=== PATIENT | female | born 1970 | race Caucasian/White ===

== ENCOUNTER → 2016-08-26 | Outpatient (CLI) | payer OTHER ==
[~2016-08-26] MED LIST: AMOX875T PO; AMT50 PO; ATV/1 PO; BUPR-79 PO; CLON1TAB3 PO; CONJ.6255 PO; FLX10 PO; HYDR-3419 PO; METH10TA PO; MULT-506 PO; PRED10TA PO; SENNTAB23 PO; VNTHFA/IN INH
--- NOTE | 2016-08-27 06:43 | PAP/PSG TECHNICIAN REPORT ---
[facility] Cigarette And Filter Chief Inspector Polysomnogram Report Study name: None Report date: 08/27/2016 Study date: 08/26/2016 Referring Physician: Gloria Dong M.D. Name: SAMMY CARR Interpreting Physician: Cale Dong M.D. Date of : 1970 Cigarette And Filter Chief Inspector: VALERY Moulton. Sex: Female Age: 45 StudyType: PSG Weight: 123 lbs Height: 45 years, Height 5' 8" Neck Circum: 13inches BMI: 18.7 Medications: Ativan 1mg, Methadone 10mg, Klonopin 1mg, ProAir HFA 108mcg/act, Elavil 25mg, Bentyl 20mg, Flexeril 10mg, Prempro 0.625-2.5mg, Flonase 50mcg/act, Miralax, Eye drops/cream Patient History Study started on room air with ETCO2 monitoring in room #5. 45 yr old female here tonight for a diagnostic psg. She snores, has chronic pain and insomnia. She has a history of mild BERT. Her ESS=10/24. Neck circ=13inches. Parameters Monitored NPSG: E1-M2, E2-M1, Fp1-M2, Fp2-M1, F3-M2, F4-M2, F4-M1, C3-M2, C4-M2, C4-M1, O1-M2, O2-M2, O2-M1, T3-M2, T4-M1, P3-M2, P4-M1, CHIN1, CHIN2, HR, EKG, Legs, PFLOW, SNOR, FLOW, CFLOW, Tidal Volume, THOR, ABDO, SpO2, PLTH, CPRESS, ETCO2 Wave, ETCO2, pH Sleep Architecture Sleep Stages Time at Lights Off 9:59:31 PM STAGES Time (min.) TST (%) Time at Lights On 5:27:01 AM Wake 116.0 -- Total Recording Time (TRT) 447.50 min. N1 10.5 3 Total Sleep Period (TSP) 379.5 min. N2 221.5 67 Total Sleep Time (TST) 331.5min. N3 86.5 26 Awake Time 116.0 min. REM 13.0 4 Wake after Sleep Onset 56.5 min. Sleep Efficiency (SE) 74 % Sleep Onset Latency (MARI) 59.5 min. Number of Stage 1 Shifts None Awakenings 16 Stage Changes 58 Number of REM periods 3 REM 13.0 4 REM Latency 115.0 min. NREM 318.5 96 Body Position Analysis Supine Right Left Side Prone Vertical Total Sleep Time (min.) 387.0 35.5 0.0 35.50 0.0 0.0 Total Sleep Time (%) 89% 11% 0% 11 0% N/A% Total Sleep Time REM (min.) 13.0 0.0 0.0 None 0.0 0.0 Total Sleep Time NREM (min.) 283.0 35.5 0.0 None 0.0 0.0 Intermittent Wake (min.) 91.0 25.0 0.0 None 0.0 0.0 Total Sleep Period (%) 86% None None None None None Arousals Myoclonus (PLM) * Events Count Index Events Count Index Spontaneous 25 5 Events Awake (PLMW) 17 8.8 Respiratory 1 0.4 Events Asleep w/ Arousal (PLMA) 1 0.2 PLM 1 0 Events Asleep w/o Arousal (PLMS) 32 5.8 Snoring 2 0 Total Asleep 33 6.0 Total 29 5 Total 50 7 Respiratory Analysis * CA OA MA CH H RERA Total Count 1 1 0 0 3 0 5 Index 0.2 0.2 0.0 0 0.5 0 0.9 Mean Duration 12.9 14.5 0.0 0.00 18.1 0.0 16.3 Longest Duration 12.9 14.5 0.0 0.00 0.0 0.0 26.1 Respiratory Event Summary Total Supine ~Supine Right Left Prone REM NREM Apneas Count 2 2 0 0 N/A N/A 1 1 Index 0.4 0 0 0.0 N/A N/A 5 0 Hypopneas (4% Desat) Count 3 3 0 0 N/A N/A 1 2 Index 0.5 0.6 0 0.0 N/A N/A 4.6 0.4 Apneas & All Hypopneas Count 5 5 0 0 N/A N/A 2 3 Index 0.9 1 0 0 N/A N/A 9.2 0.6 Respiratory Events (Director Of Cardiac Cath Lab+All Hyp+RERA) Count 5 5 0 0 N/A N/A 2 3 Index 0.9 1 0 0.0 N/A N/A 9.2 0.6 Respiratory Related Arousal Count 1 5 0 0 N/A N/A 1 1 Index 0.4 0 0 0 N/A N/A 5 0 Snoring Analysis Supine Right Left Prone REM NREM Total Snore duration 1.4 min Snores count 46 15 N/A N/A 3 58 61 Snore mean duration 1.4 Sec Snores index 9 25 N/A N/A 13.8 10.9 11.0 TST with snoring (%) 0.4% SpO2 Analysis Total REM NREM Awake <50% 0.0 min. 0.0 min. 0.0 min. 0.0 min. 51 - 60% 0.0 min. 0.0 min. 0.0 min. 0.0 min. 61 - 70% 0.0 min. 0.0 min. 0.0 min. 0.0 min. 71 - 80% 0.1 min. 0.0 min. 0.0 min. 0.1 min. 81 - 90% 234.6 min. 8.3 min. 189.7 min. 36.5 min. 91 - 100% 210.2 min. 4.7 min. 128.4 min. 77.1 min. Average 90 89 90 92 Minimum SpO2 80 85 84 80 Desaturation Event Index 0.9 4.6 0.6 1.6 # Desat. Events below 89% 4 1 3 N/A Time(%) with Saturation below 89% 29.5 1.2 27.2 1.0 Time(min.) with Saturation below 89% 131.2 5.5 121.0 4.7 Heart Rate Analysis End Tidal CO2 Analysis Min (bpm) Max (bpm) Average (bpm) TSP (mins) % of TSP Awake 65 85 73 Above 55 mmHg 0.0 0.0 NREM 63 127 69 50-55 mmHg 18.2 5.5 REM 70 85 76 45-50 mmHg 170.2 51.4 Overall 63 127 69 40-45 mmHg 71.6 21.6 35-40 mmHg 27.7 8.4 30-35 mmHg 40.8 12.3 Average ETCO2 0.1 Supplemental O2 Values Minimum O2 level: None Value Start Time End Time Cigarette And Filter Chief Inspector Comments Mrs. Carr slept in the right and supine position with the head of her bed slightly elevated. No cardiac arrhythmia or PLM's noted. No bruxism noted. Snoring was noted and scored as a 0.5 on a scale of 1 through 5. (0=no snoring, 5=snoring loud enough to be heard through a closed door or down the munoz way) She did not use the restroom during the night. She stated that she slept better than usual. At 4:20am her AHI was 1.0 and her oxygen saturations were under 89% for 120.9minutes therefore 1 lpm of oxygen was added. The ETCO2 cannula had to be removed for the remaining part of the study so that the oxygen cannula would fit in her nose. The final report will be interpreted and signed by a sleep physician. The completed physician report will then be placed in the patient medical record. Therapy (cm H2O) 0 TIB (min.) 447.5 TST (min.) 331.5 Sleep Onset (min.) 59.5 REM Onset From Sleep (min.) 115.0 Sleep Efficiency % 74 Wakefulness (%) 26 Wakefulness (min.) 116.0 NREM 1 (%) 3 NREM 1 (min.) 10.5 NREM 2 (%) 67 NREM 2 (min.) 221.5 NREM 3 (%) 26 NREM 3 (min.) 86.5 REM (%) 4 REM (min.) 13.0 # Arousals 29 Arousal Index 5 # Snore 61 Snore Index 11.0 AHI 0.9 AHI Supine 1 AHI Non-Supine 0 NREM AHI 0.6 REM AHI 9.2 RDI 0.9 # Obstructive Apnea 1 # Central Apnea 1 # Mixed Apnea 0 # Hypopneas 3 RERAs 0 Total Respiratory Events 5 Time Below SpO2 89% (min.) 126.5 Mean NREM SpO2 (%) 90 Mean REM SpO2 (%) 89 Mean Sleep SpO2 (%) 90 Min NREM SpO2 (%) 84 Min REM SpO2 (%) 85 Position Supine (min.) 387.0 Position Non-supine (min.) 35.5 LM Index Sleep 6.0 LM Index NREM 4.9 LM Index REM 32.3 Mean Heart Rate (bpm) 69 Min Heart Rate (bpm) 63
--- NOTE | 2016-09-07 18:46 | POLYSOMNOGRAPH REPORT ---
REFERRING PERSON: Dr. Kaylen Dong. STRAP SETTER: Debbie Apodaca. Ms. Carr is a 45-year-old female sent for baseline sleep study. She has a history of snoring, chronic pain, and insomnia. She has been previously diagnosed with mild sleep apnea that is currently untreated. Her [place] sleepiness scale score on the evening of this study is 10. BMI is 18.7. Following the technical and digital specifications of the [employer] (AASM) a standard diagnostic polysomnogram was performed monitoring EEG, EOG, EMG (chin and leg deviations), oxygen saturation, body position, digital video, respiratory effort and airflow.? The sleep Stage and event scoring was based on the AASM Manual for the Scoring of Sleep and Associated Events 2007 edition.? Apneas are defined as a drop in the peak thermal sensor excursion by >90% of baseline for at least 10 seconds.? Hypopneas were scored using the 4% oxygen desaturation rule (4A-Medic[employer]) and a decrease in the nasal pressure excursions by >30% of baseline for at least 10 seconds.? Respiratory effort-related arousal (RERA's) is defined as a sequence of breaths lasting at least 10 seconds characterized by increasing respiratory effort or flattening of the nasal pressure waveform leading to an arousal from sleep when the sequence of breaths does not meet criteria for an apnea or hypopnea.? Apnea Hypopnea index (AHI) is defined as the number of apneas and hypopneas occurring in an hour of sleep.? Respiratory disturbance index (RDI) is defined as the number of apneas, hypopneas, and RERA's occurring in an hour of sleep. Ms. Carr's total sleep period time was 379.5 minutes. Total sleep time was 331.5 minutes. Sleep efficiency was 74%. Latency to sleep onset was 59.5 minutes. Wake after sleep onset was 56.5 minutes. Total non-REM sleep time was 318.5 minutes. She spent 3% of that time in N1 sleep, 67% in N2 sleep and 26% in N3 sleep. REM latency was 115 minutes. Total REM sleep time was 13 minutes or 4% of total sleep time. There were 29 cortical arousals from sleep. Twenty-five of these arousals were spontaneous, 1 was due to respiratory event, 1 due to periodic limb movements of sleep and 2 were due to snoring. There were 33 periodic limb movements noted on this test. Limb movement index was 6. Limb movement with arousal index was 0.2. There was 1 central, 1 obstructive and no mixed apneas on this test. There were 3 hypopnea and no RERA. Apnea-hypopnea index was 0.9. This is normal. REM AHI was 9.2, non-REM AHI was 0.6. There were 61 snoring events recorded. Total sleep time with snoring was 0.4%. Mean saturation was borderline low at 90% with desaturations to 80% on this study. Saturations were less than 89% for 131.2 minutes of recorded time. This is significant nocturnal hypoxemia. There was no cardiac ectopy noted on this study. Heart rates ranged from a low of 63 to 127 beats per minute during sleep. End-tidal CO2 was recorded on this test. End tidal CO2 were between 50 and 55 mmHg or 5.5% of total sleep period time, between 45 and 50 mmHg for 51.4%, between 40 and 45 mmHg for 21.6%, between 35 and 40 mmHg for 8.4% and between 30 and 35 mmHg for 12.6% of total sleep period time. At 04:20 a.m., this patient's AHI was less than 1, but her oxygen saturations had been under 89% for 120.9 minutes of recording time. Therefore, 1 liter of oxygen was started at that time on this study. IMPRESSION AND PLAN: A 45-year-old female without evidence of sleep disordered breathing, parasomnia, bruxism or clinically significant periodic limb movements of sleep. However, she does have nocturnal hypoxemia. Clinical correlation is needed. This patient may in fact benefit from oxygen therapy or need pulmonary function test and/or pulmonary consultation should the cause of her hypoxemia be unknown.
== END | disposition home or self-care (01) ==
LOC: C.NEUR 21:00
PROVIDERS: ATTEND Family Medicine
DX: G47.31 Primary central sleep apnea (principal); F51.11 Primary hypersomnia; F51.04 Psychophysiologic insomnia; R06.83 Snoring; G47.33 Obstructive sleep apnea (adult) (pediatric); G47.34 Idiopathic sleep related nonobstructive alveolar hypoventilation; G47.61 Periodic limb movement disorder; G47.63 Sleep related bruxism; F41.8 Other specified anxiety disorders; J44.9 Chronic obstructive pulmonary disease, unspecified

== ENCOUNTER → 2016-10-06 | Outpatient (CLI) | payer OTHER ==
--- NOTE | 2016-10-06 10:01 | DIAGNOSTIC IMAGING REPORT ---
PET/CT CLINICAL HISTORY: Pulmonary nodule. COMPARISON STUDY: Chest CT dated 09/16/2016 and 05/07/2016. TECHNIQUE: One hour following the IV administration of 13.61 mCi of F-18 FDG, PET/CT examination was performed from the orbital meatal line through the bony pelvis. Noncontrast CT is performed for the purposes of anatomic correlation and attenuation correction. Note that this does not reflect a diagnostic CT examination. Images were reviewed on a separate [employer] independent workstation. Fused images were obtained. Standard uptake values reported are maximum values within the region of interest expressed in gm/mL. FINDINGS: PET FINDINGS: Head and neck: There is expected physiologic activity within the visualized brain parenchyma at the skull base and the salivary glands. Thorax: Evaluation of the thorax demonstrates expected physiologic myocardial activity. Again seen is a 9 mm irregular right lower lobe pulmonary nodule on axial image #104. This was not demonstrably FDG avid but is too small for definitive PET characterization. A 6 mm left lower lobe nodule is seen on image #121, a 3 mm pleural-based nodule is seen in the right lower lobe on image #94, a 4 mm left apical nodule image #70, and a 3 mm right apical nodule seen on image #67. Additional smaller nodules are identified. These were also too small for PET characterization end are unchanged from the 09/16/[address] Abdomen and pelvis: There is expected activity within the liver, spleen, kidneys, renal collecting system, and bladder. Low-level bowel activity is likely within physical limits. Unenhanced CT images: Visualized brain parenchyma at the skull base is normal in appearance. The bony orbits are intact and the orbital contents are normal as visualized. The visualized paranasal sinuses are clear. A right mastoid effusion is noted. The left mastoid air cells are clear. The salivary and thyroid glands are normal in appearance. There is no cervical lymphadenopathy. There is mild atherosclerotic calcification of the thoracic aorta which is normal in caliber. The heart is normal in size and without pericardial effusion. Emphysema is observed. There is no airspace consolidation typical for pneumonia or pleural effusion. A calcified granuloma is noted in the left lower lobe. See above under PET findings for discussion of pulmonary nodules. There is no mediastinal, hilar, or axillary lymphadenopathy. The unenhanced liver is normal in appearance noting fatty infiltration adjacent to the falciform ligament. The gallbladder surgically absent. Intrahepatic biliary ductal dilatation is likely on a postoperative basis. The unenhanced spleen, adrenal glands, kidneys, and pancreas are grossly normal. The abdominal aorta is normal in caliber noting mild atherosclerotic calcification. There is no bowel obstruction. No intraperitoneal free air or abdominal ascites is seen. There is no abdominal, mesenteric, retroperitoneal, pelvic, or inguinal lymphadenopathy. The bladder is decompressed and not evaluated. The uterus is surgically absent. No adnexal lesion is seen. The skeletal structures are osteopenic. No lytic or blastic bony lesions are identified. There are postoperative changes from lumbar spinal fusion surgery. IMPRESSION: 1. There is a 9 mm irregular pulmonary nodule in the right lower lobe. This was not demonstrably FDG avid but is too small for definitive PET characterization. When correlated with the 09/16/[address] this remains morphologically concerning and neoplasm is not excluded. 2. Numerous additional smaller pulmonary nodules are also unchanged from 09/16/2016 and are too small for PET characterization. 3. There is no FDG avid mediastinal or hilar lymphadenopathy. 4. There is no evidence of metastatic disease. 5. Emphysema. Electronically signed by: London Asencio M.D. 10/06/2016 10:00 AM Dictated Date/Time: 10/06/2016 9:47 AM
== END | disposition home or self-care (01) ==
LOC: C.PET 06:58
PROVIDERS: ATTEND Surgery
DX: R91.1 Solitary pulmonary nodule (principal)

== ENCOUNTER → 2016-10-16 | Outpatient (CLI) | payer OTHER | END | disposition home or self-care (01) | LOC: C.LAB 12:56 | PROVIDERS: ATTEND Surgery | DX: C34.90 Malignant neoplasm of unspecified part of unspecified bronchus or lung (principal) ==

== ENCOUNTER 2016-10-21 05:59 | Inpatient (IN) | payer OTHER ==
[2016-10-17 10:12] VITALS: Ht 175.3 cm; Wt 54.5 kg
[~2016-10-21] VITALS: Ht 175.3 cm; Wt 54.5 kg
[2016-10-21] VITALS (7 sets, daily range): BP systolic 108–132; BP diastolic 63–83; PULSE 80–93; TEMP 36.3–36.7; O2SAT 96–100
[~2016-10-21 05:59] MED LIST changes: -AMOX875T PO; -CLON1TAB3 PO; -PRED10TA PO; -SENNTAB23 PO
[2016-10-21] MEDS ORDERED: LACTATED RINGER'S 1000ML 1,000 ML IV SCH (06:00)
[2016-10-21] MEDS ORDERED: ROCURONIUM BROMIDE 10 MG/ML 5 ML VIAL ONE ×2 (06:27→09:17)
[2016-10-21] MEDS ORDERED: FENTANYL CITRATE INJ 50 MCG/1 ML 2 ML VIAL ONE ×3 (06:27→09:06)
[2016-10-21] MEDS ORDERED: MIDAZOLAM HCL 1 MG/ML 2ML VIAL ONE (06:27)
[2016-10-21] MEDS ORDERED: ONDANSETRON INJ 2 MG/ML 2 ML VIAL ONE (06:27)
[2016-10-21] MEDS ORDERED: PROPOFOL IV EMULSION 10 MG/ML 20 ML VIAL IV ONE (06:27)
[2016-10-21] MEDS ORDERED: NEOSTIGMINE METHYLSULFATE 5 MG/5 ML SYR ONE (06:28)
[2016-10-21] MEDS ORDERED: GLYCOPYRROLATE INJ 0.2 MG/ML VIAL ONE ×2 (06:28→10:18)
--- NOTE | 2016-10-21 06:56 | History & Physical Bridge Note ---
H&P Re-Evaluation Bridge Note: I have examined the patient, reviewed the History & Physical and in the interval since the performance of the History & Physical I have noted the following changes of clinical significance: No changes noted
[2016-10-21] MEDS ORDERED: BUPIVACAINE LIPOSOME 1/3% 266 MG/20 ML VIAL INFIL ONE (07:19)
[2016-10-21] MEDS ORDERED: SODIUM CHLORIDE 0.9% PF 50 ML VIAL ONE (07:19)
[2016-10-21] MEDS ORDERED: CLINDAMYCIN PHOS 150 MG/ML 2 ML VIAL ONE (09:09)
[2016-10-21] MEDS ORDERED: PHENYLEPHRINE 100MCG/ML 5ML SYR IV PRN (09:45)
[2016-10-21] MEDS ORDERED: HYDROmorphone INJ 2 MG/ML SYR/VIAL IV PRN (09:45)
[2016-10-21] MEDS ORDERED: EpHEDrine SULFATE INJ 50 MG/ML AMP IV PRN (09:45)
[2016-10-21] MEDS ORDERED: ATROPINE SULFATE 0.1 MG/ML 5ML SYR IV PRN (09:45)
[2016-10-21] MEDS ORDERED: ONDANSETRON INJ 2 MG/ML 2 ML VIAL IV PRN ×2 (09:45→10:45)
--- NOTE | 2016-10-21 10:19 | DIAGNOSTIC IMAGING REPORT ---
FLUOROSCOPIC images of the chest CLINICAL HISTORY: NAVIGATIONAL BRONCH WITH FIDUCIAL MAKERS IN OR COMPARISON STUDY: PET/CT October 06, 2016. Fluoroscopy time: 1 minute and 26 seconds. FINDINGS: 2 fluoroscopic images from bronchoscopy with fiducial marker placement were obtained. IMPRESSION: Fluoroscopic images during bronchoscopy. Electronically signed by: Gianni Holley M.D. 10/21/2016 10:17 AM Dictated Date/Time: 10/21/2016 10:16 AM
[2016-10-21] MEDS ORDERED: OXYCODONE HCL IR 5 MG TAB (IMMEDIATE RELEASE) PO PRN (10:45)
[2016-10-21] MEDS ORDERED: LORAZEPAM 1 MG TAB PO PRN (10:45)
[2016-10-21] MEDS ORDERED: ALBUTEROL HFA 8 GM INHALER INH PRN (10:45)
[2016-10-21] MEDS ORDERED: CYCLOBENZAPRINE HCL 10 MG TAB PO PRN (10:45)
--- NOTE | 2016-10-21 11:14 | DIAGNOSTIC IMAGING REPORT ---
CHEST ONE VIEW PORTABLE CLINICAL HISTORY: RLL Wedge COMPARISON STUDY: PET/CT October 06, 2016. FINDINGS: A right chest tube is directed toward the apex. There is a trace right pneumothorax. Right infrahilar opacity is present. There is no evidence of pulmonary edema. Cardiac size is normal. IMPRESSION: Interval postoperative findings within the right hemithorax with right chest tube in place. Trace right pneumothorax and right infrahilar opacity which is likely postsurgical. Electronically signed by: Gianni Holley M.D. 10/21/2016 11:13 AM Dictated Date/Time: 10/21/2016 11:12 AM
--- NOTE | 2016-10-21 11:32 | OPERATIVE REPORT ---
DATE OF OPERATION: 10/21/2016 PREOPERATIVE DIAGNOSIS: Mass right lower lobe. POSTOPERATIVE DIAGNOSIS: Apparent intrapulmonary lymph node right lower lobe. PROCEDURES: 1. Navigational bronchoscopy with marking using a fiducial marker and a methylene blue dye. 2. Right thoracoscopy with wedge resection. 3. Lymph node biopsy. SURGEON: Dr. Mccullough. ASSISTANT HEALTH EDUCATOR: William Swan PA-C. ANESTHESIA: General anesthesia endotracheal intubation with double lumen tube. SPECIFICS OF PROCEDURE: This is a very nice 46-year-old smoker who was found to have a mass that I was suspicious of in the right lower lobe. She got some 2-3 mm small masses throughout her lungs, but this mass in her right lower lobe was concerning. It was really not an area where it could be needles and was not suitable for needle biopsy and I did not think a navigational bronchoscopy would provide a very good yield. I felt that marking this with a navigational bronchoscopy and fiducial marker and then wedging it out would be the best option. I did leave open the option of simply observing it and repeating a CT scan in 3 months; however, the patient and her were agreeable to a more aggressive approach. On 10/21/2016 I took the patient to the operating room and performed navigational bronchoscopy without difficulty. The mass was small and peripheral and I did get in the area and put a fiducial marker and did callie towards the pleural surface with methylene blue dye. She tolerated it well and then we put a double lumen tube and turned her. Upon entering her chest, we see there were no adhesions. I did not really see the methylene blue but we brought in fluoroscopy and I could see the fiducial marker. In picking this up I then did a generous wedge. I could see from my first staple line that the fissure marker had been included in it so I included this first staple line with another more generous bite. I opened this and did not really see much on the first biopsy specimen, the second there was a darkened area. I sent this off for frozen. While waiting for frozen I freed up the inferior pulmonary ligament, biopsied level 8 and 9 nodes and then frozen section came back as intrapulmonary lymph node. It was the appropriate size. Given this, I elected to proceed with closing the patient. We did an Exparel block. She tolerated it well. OPERATION AND FINDINGS: PROCEDURE: The patient brought to the operating room and laid supine position. General anesthesia induced and endotracheal intubation was performed with an 8.5 tube. She had been mapped previously on the [employer] system. The bronchoscope was then placed, there were no endobronchial lesions, bleeding or mucus. We then registered her airways and then placed the navigational probe down into the right lower lobe bronchus and we were able to come out close to the mass. It did not actually get into it. I did not see it on the radial ultrasound which did not surprise me. I placed a fiducial marker as we were within 1.5 cm. I then used methylene blue and 0.5 mL of air injected under fluoroscopic guidance and then removed the bronchoscope. The patient then was reintubated with a double lumen tube and placed in the left lateral decubitus position, her right chest prepped, draped in usual sterile fashion. After appropriate timeout had been called and antibiotics had been given, an incision was made still a bit anterior to the tip of the scapula. Upon entering this with a 5 mm scope and insufflating CO2, we could see that there were really no adhesions. The fissures were fairly well developed. I did not see methylene blue where we injected; however, under fluoroscopy, I did see the fiducial marker. I grasped this area, pulled it upward and did a wedge resection of the superior lateral aspect of the lobe. This went well; however, I could see the fiducial marker and our staple line. For this reason, I grasped the staple line and put another staple line underneath this and sent off both of these. Dr. Vazquez Johnson called back and said they had found an 8 mm intrapulmonary lymph node. We did not have an air leak at the conclusion. While waiting for the frozen section, I freed up the inferior pulmonary ligament and biopsied the level 8 and 9 nodes. When it came back as intrapulmonary lymph node, I had a decision to make about whether this was indeed our mass. As I saw nothing else in the area I felt that we were probably dealing with the mass that was concerning to us. I elected to close. 266 mg of Exparel was 60 mL of normal saline were injected from the 2nd to the 11th rib. We then placed a 24 Armenian chest tube in the anterior thoracostomy port directed towards the apex and held in place with heavy silk suture. All the muscle layers of the 3 ports were closed with a 0 Vicryl. It should be noted we had a 4th interspace, 3 cm incision and a 7th interspace anterior 1.5 cm incision for our instruments. She tolerated it quite well with no air leak and really no blood loss. She was transported to the postanesthesia care unit in stable condition after being extubated. I attest to the content of the Intraoperative Record and any orders documented therein. Any exception s are noted below.
[2016-10-21] MEDS: MoRPHine SULFATE 2 MG/ML CARP IV PRN ×3 (12:34→20:27)
[2016-10-21] MEDS ORDERED: D5W AND 1/2NSS 1,000 ML IV SCH (13:30)
--- NOTE | 2016-10-21 13:57 | Anesthesiology Progress Note ---
Anesthesia Post Op Note Date & Time Oct 21, 2016 at 13:57 Vital Signs Pain Intensity: 8.0 Vital Signs Past 12 Hours Date Time Temp Pulse Resp B/P (MAP) Pulse Ox O2 Delivery O2 Flow Rate FiO2 10/21/16 13:13 36.3 81 19 128/82 (97) 99 Nasal Cannula 2.0 10/21/16 12:15 100 Nasal Cannula 2.0 10/21/16 11:55 83 19 129/76 98 Nasal Cannula 2 10/21/16 11:45 36.1 74 18 140/66 99 Nasal Cannula 2 10/21/16 11:35 81 14 128/68 99 Nasal Cannula 2 10/21/16 11:25 75 18 104/67 100 Mask 10 10/21/16 11:15 75 29 120/64 100 Mask 10 10/21/16 11:05 75 20 136/75 100 Mask 10 10/21/16 10:57 35.8 78 21 111/69 100 Mask 10 10/21/16 06:42 36.7 80 18 114/63 97 Room Air Notes Mental Status: alert / awake / arousable, participated in evaluation Pt Amnestic to Procedure: Yes Nausea / Vomiting: adequately controlled Pain: adequately controlled Airway Patency, RR, SpO2: stable & adequate BP & HR: stable & adequate Hydration State: stable & adequate Anesthetic Complications: no major complications apparent
[2016-10-21] MEDS: METOCLOPRAMIDE HCL INJ 5 MG/ML 2 ML VIAL IV. SCH ×2 (14:23→21:39)
[2016-10-21] MEDS: KETOROLAC TROMETHAMINE 30 MG/ML VIAL IV. SCH ×2 (14:23→21:39)
[2016-10-21] MEDS: ACETAMINOPHEN IV 1,000 MG in EMPTY BAG 0 ML IV SCH ×2 (14:25→21:13)
[2016-10-21] MEDS: CLINDAMYCIN IV 900 MG in DEXTROSE 5% ADD-VANTAGE 100ML 100 ML IV SCH ×2 (15:57→21:39)
[2016-10-21] MEDS ORDERED: NURSING VERBAL MED ORDER ONE (18:00)
[2016-10-21] MEDS: DOCUSATE SODIUM 100 MG CAP PO SCH (20:26)
[2016-10-21] MEDS: BuPROPion SR 150 MG TABCR PO SCH (20:26)
[2016-10-21] MEDS ORDERED: AMITRIPTYLINE HCL 50 MG TAB PO SCH (21:00)
[2016-10-22] MEDS: MoRPHine SULFATE 2 MG/ML CARP IV PRN (02:56)
[2016-10-22 03:42] VITALS: BP 107/67; PULSE 87; TEMP 36.8; O2SAT 95
[2016-10-22] MEDS: ACETAMINOPHEN IV 1,000 MG in EMPTY BAG 0 ML IV SCH ×2 (05:35→13:41)
[2016-10-22] MEDS: KETOROLAC TROMETHAMINE 30 MG/ML VIAL IV. SCH ×2 (05:35→13:41)
[2016-10-22] MEDS: METOCLOPRAMIDE HCL INJ 5 MG/ML 2 ML VIAL IV. SCH (05:35)
--- NOTE | 2016-10-22 07:29 | DIAGNOSTIC IMAGING REPORT ---
CHEST ONE VIEW PORTABLE CLINICAL HISTORY: RLL Wedge postoperative evaluation COMPARISON STUDY: 10/21/2016 FINDINGS: Right-sided chest tube unchanged in position. Trace amount of subcutaneous emphysematous change. No significant pneumothorax. Mild right basilar atelectasis. IMPRESSION: 1. No significant postprocedure pneumothorax. 2. Mild right basilar atelectatic change Electronically signed by: Kenny Cash M.D. 10/22/2016 7:28 AM Dictated Date/Time: 10/22/2016 7:27 AM
[2016-10-22 07:34] VITALS: BP 106/70; PULSE 89; TEMP 36.6; O2SAT 95
[2016-10-22 07:45] VITALS: O2SAT 95
[2016-10-22 08:08] LABS: INR 1.1 (0.9-1.1); PROTHROMBIN TIME (PATIENT) 11.7 SECONDS (9.0-12.0)
--- NOTE | 2016-10-22 08:18 | Discharge Instructions ---
Discharge Instructions Date of Service Oct 22, 2016. Admission Reason for Admission: Lung Nodule Discharge Discharge Diagnosis / Problem: Lung Nodule Discharge Goals Goal(s): Learn about illness Activity Recommendations Activity Limitations: as noted below . Instructions / Follow-Up Instructions / Follow-Up 1. You may remove dressings in 3 days and shower thereafter. No tub baths. 2. Do not fly or SCUBA dive until cleared to do so by Dr. Mccullough. 3. Office appointment with Dr. Mccullough in 1 week. Office will call you with date and time of appointment. Go to hospital 1 hour before appointment to have a chest x-ray taken. Current Hospital Diet Patient's current hospital diet: Regular Diet Discharge Diet Recommended Diet: Regular Diet Procedures Procedures Performed: Navigational Bronchoscopy with Fiducial Markers; Right Video-assisted Thoracoscopy with Right Lower Lobe Wedge Resection Pending Studies Studies pending at discharge: no Medical Emergencies . Who to Call and When: Medical Emergencies: If at any time you feel your situation is an emergency, please call 911 immediately. . Non-Emergent Contact Non-Emergency issues call your: Surgeon Call Non-Emergent contact if: you have a fever, your pain is not controlled, wound has increased drainage . "Provider Documentation" section prepared by William Swan. . VTE Core Measure Inpt VTE Proph given/why not?: Enoxaparin (Lovenox)SQ
[2016-10-22 08:31] LABS: CREATININE 0.8 mg/dl (0.60-1.20)
[2016-10-22] MEDS: BuPROPion SR 150 MG TABCR PO SCH (08:42)
[2016-10-22] MEDS: DOCUSATE SODIUM 100 MG CAP PO SCH (08:42)
--- NOTE | 2016-10-22 08:46 | Anesthesiology Progress Note ---
Anesthesia Post Op Note Date & Time Oct 22, 2016 at 08:46 Vital Signs Vital Signs Past 12 Hours Date Time Temp Pulse Resp B/P (MAP) Pulse Ox O2 Delivery O2 Flow Rate FiO2 10/22/16 07:45 95 Room Air 10/22/16 07:34 36.6 89 11 106/70 (82) 95 Room Air 10/22/16 03:42 36.8 87 18 107/67 (80) 95 Room Air 10/21/16 23:17 36.3 93 16 108/68 (81) 96 Room Air Notes Mental Status: alert / awake / arousable, participated in evaluation Pt Amnestic to Procedure: Yes Nausea / Vomiting: adequately controlled Pain: adequately controlled Airway Patency, RR, SpO2: stable & adequate BP & HR: stable & adequate Hydration State: stable & adequate Anesthetic Complications: no major complications apparent
[2016-10-22] MEDS ORDERED: HYDR-3419 PO (08:59)
[2016-10-22] MEDS ORDERED: MULTIVITAMIN TAB PO SCH (09:00)
--- NOTE | 2016-10-22 09:05 | DISCHARGE SUMMARY ---
Ms. Carr is 1 day status post thoracoscopic wedge resection of a mass in her right lower lobe which was localized with a fiducial marker via an electromagnetic navigational bronchoscopy. She has done well overnight. There are some pain issues but she has really done well. She is on room air with 95% sats. Her x-ray looks good. She has drained very little from her chest tube. She has no air leak. All in all, she looks quite good. I am going to remove her chest tube and discharge her today. We will see her back in 1 week. We will give her pain medications. I have been very happy with her hospital course. She is to call me should any problems arise.
[2016-10-22 09:11] LABS: MEAN CELL VOLUME 89.3 fL (80-100); MEAN CORPUSCULAR HEMOGLOBIN 29.1 pg (25-34); MEAN CORPUSCULAR HGB CONC 32.6 g/dl (32-36); MEAN PLATELET VOLUME 9.8 fL (7.4-10.4); PLATELET COUNT 178 K/uL (130-400); RED BLOOD COUNT 3.47 M/uL (4.2-5.4); WHITE BLOOD COUNT 7.46 K/uL (4.8-10.8)
--- NOTE | 2016-10-22 09:35 | DIAGNOSTIC IMAGING REPORT ---
SINGLE VIEW CHEST CLINICAL HISTORY: Status post chest tube removal. FINDINGS: An AP, portable, upright chest radiograph is compared to study performed earlier the same day 10/22/2016. Correlation is made with chest CT dated 05/07/2016. The examination is degraded by portable technique and patient rotation. A right-sided chest tube has been removed. The cardiomediastinal silhouette is unremarkable. Airspace opacities are present at the right lung base. There is a trace right pleural effusion. The left lung appears clear. There is only a trace right apical pneumothorax. There is chronic posttraumatic deformity of the left clavicle. Subcutaneous emphysema is seen along the right chest wall. Surgical clips are noted in the right upper quadrant. IMPRESSION: 1. The right-sided chest tube has been removed. Only trace pneumothorax is seen at the right apex. 2. There are airspace opacities at the right lung base with a trace right pleural effusion. Electronically signed by: London Asencio M.D. 10/22/2016 9:33 AM Dictated Date/Time: 10/22/2016 9:30 AM
[2016-10-22] MEDS ORDERED: ENOXAPARIN 40 MG/0.4 ML SYR SQ SCH (10:00)
[2016-10-22 11:08] VITALS: BP 106/70; PULSE 89; TEMP 36.6; O2SAT 95
[2016-10-22 11:56] VITALS: BP 122/72; PULSE 89; TEMP 36.4; O2SAT 95
[2016-12-25] MEDS ORDERED: SENNTAB23 PO (11:32)
== END 2016-10-22 14:40 | disposition home or self-care (01) | DRG 168 ==
LOC: C.ACU 05:59 → C.MSN 07:00 → ENRESERV 11:35
PROVIDERS: ADMIT Surgery; ATTEND Surgery
PROC: 0BBF4ZX Excision of Right Lower Lung Lobe, Percutaneous Endoscopic Approach, Diagnostic (ICD-10-PCS; principal; 2016-10-21 07:45)
PROC: 07B74ZX Excision of Thorax Lymphatic, Percutaneous Endoscopic Approach, Diagnostic (ICD-10-PCS; principal; 2016-10-21 07:45)
PROC: 0BJ08ZZ Inspection of Tracheobronchial Tree, Via Natural or Artificial Opening Endoscopic (ICD-10-PCS; principal; 2016-10-21 07:45)
DX: R91.8 Other nonspecific abnormal finding of lung field (principal); R91.1 Solitary pulmonary nodule; F17.200 Nicotine dependence, unspecified, uncomplicated; Z79.899 Other long term (current) drug therapy; Z85.828 Personal history of other malignant neoplasm of skin; Z83.3 Family history of diabetes mellitus; Z82.49 Family history of ischemic heart disease and other diseases of the circulatory system

== ENCOUNTER → 2016-10-27 | Outpatient (CLI) | payer OTHER ==
[~2016-10-27] MED LIST changes: +SENNTAB23 PO
--- NOTE | 2016-10-27 12:08 | DIAGNOSTIC IMAGING REPORT ---
CHEST 2 VIEWS ROUTINE HISTORY: R91.1 Lung [id number] COMPARISON: Chest 10/22/2016. FINDINGS: The right-sided pneumothorax appears to have resolved in the interval. Trace right chest wall subcutaneous emphysema has improved. Left lung remains clear. The heart is normal in size. Suture material within the right mid to lower lung zone is again noted. Linear densities within the right mid to lower lung zone adjacent to the suture material has improved. This likely represents resolving postoperative change. Cholecystectomy. IMPRESSION: Improvement in the expected postoperative change within the right hemithorax as described above. No definite pneumothorax identified at this time. Electronically signed by: Rodri Munoz M.D. 10/27/2016 12:06 PM Dictated Date/Time: 10/27/2016 12:05 PM
== END | disposition home or self-care (01) ==
LOC: C.RAD 11:23
PROVIDERS: ATTEND Surgery
DX: R91.1 Solitary pulmonary nodule (principal)

== ENCOUNTER → 2017-02-16 | Outpatient (CLI) | payer OTHER ==
--- NOTE | 2017-02-16 18:03 | DIAGNOSTIC IMAGING REPORT ---
CT OF THE CHEST WITHOUT IV CONTRAST CLINICAL HISTORY: Right lung mass. COMPARISON STUDY: Chest CT September 16, 2016 and PET/CT October 06, 2016. CT DOSE: 223.33 mGy.cm TECHNIQUE: Axial images of the chest were obtained without IV contrast. Images were reviewed in the axial, sagittal, and coronal planes. IV contrast was not administered for this examination. A dose lowering technique was utilized adhering to the principles of ALARA. FINDINGS: No enlarged axillary, mediastinal or hilar lymph nodes are present. The size of the heart is normal. There is no pericardial effusion. There are expected postoperative findings consistent with a right lower lobe wedge resection. Linear and nodular opacity within the operative bed is likely postsurgical. The right lower lobe nodule shown on PET/CT of October 06, 2016 is not confidently identified and has likely been resected although could be obscured by postsurgical change. There is no consolidation to suggest pneumonia. Central airways are patent. There are multiple small calcified and noncalcified pulmonary nodules, the largest of which is a 5 mm left lower lobe nodule shown image 243. This is unchanged since exam of May 07, 2016. No suspicious osseous lesions are present. Mild biliary ductal dilatation is unchanged from prior exams and likely related to prior cholecystectomy. There is no pneumothorax or pleural effusion. IMPRESSION: 1. Expected postoperative findings following right lower lobe wedge resection. Slightly nodular opacity within the operative bed likely reflects postsurgical change. Previously described right lower lobe nodule not identified and has likely been resected. 2. No change in several additional small noncalcified pulmonary nodules since CT of May 07, 2016. These are likely benign but a follow-up chest CT in one year could be obtained to ensure stability. 3. No thoracic lymphadenopathy. Electronically signed by: Gianni Holley M.D. 02/16/2017 6:01 PM Dictated Date/Time: 02/16/2017 5:47 PM
== END | disposition home or self-care (01) ==
LOC: C.CTS 16:38
PROVIDERS: ATTEND Surgery
DX: R91.1 Solitary pulmonary nodule (principal)

== ENCOUNTER → 2017-02-25 | Day surgery (SDC) | payer OTHER ==
[2016-12-25 11:33] VITALS: Ht 175.3 cm; Wt 54.5 kg
[~2017-02-25] VITALS: Ht 175.3 cm; Wt 54.5 kg
[~2017-02-25] MED LIST changes: +ATROPINE SULFATE 0.1 MG/ML 5ML SYR IV PRN; +BUPIVACAINE 0.25% 2.5MG/ML PF 10 ML VIAL ONE; +DEXAMETHASONE SOD INJ 4 MG/ML VIAL ONE; +FENTANYL CITRATE INJ 50 MCG/1 ML 2 ML VIAL IV PRN; +FENTANYL CITRATE INJ 50 MCG/1 ML 2 ML VIAL ONE; +LACTATED RINGER'S 1000ML 1,000 ML IV SCH; +LIDOCAINE HCL 1% 20 ML VIAL ONE; +LIDOCAINE HCL 2% 2 ML VIAL (20MG/ML) ONE; +MIDAZOLAM HCL 1 MG/ML 2ML VIAL ONE; +ONDANSETRON INJ 2 MG/ML 2 ML VIAL IV PRN; +ONDANSETRON INJ 2 MG/ML 2 ML VIAL ONE; +PROPOFOL IV EMULSION 10 MG/ML 20 ML VIAL IV ONE
[2017-02-25 08:54] VITALS: TEMP 36.6
--- NOTE | 2017-02-25 08:59 | Discharge Instructions ---
Discharge Instructions Date of Service Feb 25, 2017. Visit Reason for Visit: Sacroiliitis Discharge Discharge Diagnosis / Problem: low back pain Discharge Goals Goal(s): Decrease discomfort, Improve function Activity Recommendations Activity Limitations: resume your previous activity Anesthesia . Post Anesthesia Instructions: If you have had General Anesthesia or IV Sedation: * Do not drive today. * Resume driving when surgeon permits. * Do not make important decisions or sign legal documents today. * Call surgeon for: 1. Temperature elevations greater than 101 degrees F. 2. Uncontrollable pain. 3. Excessive bleeding. 4. Persistent nausea and vomiting. 5. Medication intolerance (nausea, vomiting or rash). * For nausea and vomiting use only clear liquids such as: tea, soda, bouillon until nausea subsides, then gradually increase diet as tolerated. * If you have any concerns or questions, call your surgeon's office. If physician is unavailable and it is an emergency, call 911 or go to the nearest emergency room. . Diet Recommendations Recommended Home Diet: resume previous diet Procedures Procedures Performed: Left Cooled Sacroiliac Radio Frequency Denervation Pending Studies Studies pending at discharge: no Medical Emergencies . Who to Call and When: Medical Emergencies: If at any time you feel your situation is an emergency, please call 911 immediately. . Non-Emergent Contact Non-Emergency issues call your: Specialist . . "Provider Documentation" section prepared by Hu uJng. .
[2017-02-25 09:06] VITALS: BP 111/53; PULSE 73; O2SAT 98
--- NOTE | 2017-02-25 09:09 | Anesthesia Progress Nt - [facility] ---
Anesthesia Post Op Note Date & Time Feb 25, 2017 at 09:08 Vital Signs Vital Signs Past 12 Hours Date Time Temp Pulse Resp B/P (MAP) Pulse Ox O2 Delivery O2 Flow Rate FiO2 02/25/17 08:54 36.6 70 16 104/68 (80) 100 Room Air 02/25/17 07:17 36.6 87 16 93/57 (69) 99 Room Air Notes Mental Status: alert / awake / arousable, participated in evaluation Pt Amnestic to Procedure: Yes Nausea / Vomiting: adequately controlled Pain: adequately controlled Airway Patency, RR, SpO2: stable & adequate BP & HR: stable & adequate Hydration State: stable & adequate Anesthetic Complications: no major complications apparent
--- NOTE | 2017-02-25 11:14 | OPERATIVE REPORT ---
DATE OF OPERATION: 02/25/2017 CHIEF COMPLAINT: Left sacroiliitis, history of an L5-S1 fusion. POSTOPERATIVE DIAGNOSIS: Same. PROCEDURE: Left sacroiliac cooled denervation. INDICATIONS: The patient is a 46-year-old female that had a sacroiliac denervation done on the left side in April, reported that that provided her with significant relief of pain that she has not felt for years; however, recently the effect has worn off and the pain has been increasing. She presents today for cooled denervation to provide her with sustained improvements in pain for left sacroiliitis. PHYSICAL EXAMINATION: GENERAL: Pleasant female, seated comfortably. MUSCULOSKELETAL: Her lumbar paraspinal muscles revealed a well-healed incision. She is point tender to palpation over left SI joint. This is worse with extension. She has no motor or sensory deficits of her lower extremities. CONSENT: Verbal and written consent was obtained from the patient. Risks and benefits were reviewed. Risks include but are not limited to abscess, allergic reaction, denervation. The patient wishes to proceed. PROCEDURE: The patient was taken back into OR-1 of the [facility] where she was maintained in a prone position. Backside was cleansed with Betadine x3 and a dry sterile dressing was applied. Fluoroscope was used to identify left SI joint and the overlying skin lateral and superior to S1 foramen was anesthetized with 5 mL of lidocaine 1% and the overlying skin lateral to S2 foramen was anesthetized with 3 mL of lidocaine 1% with 25-gauge 1.5-inch needle. A denervation needle was then placed targeting a total of 8 separate sites. The first site was the left sacral ala, the second site was lateral superior S1 foramen, the third site lateral S1 foramen, the next site was inferior lateral S1 foramen, next site superior lateral S2 foramen, next site lateral S2 foramen, then the next site was the inferior S2 foramen and last site was the superior S3 foramen. Underwent cooling of 2 minutes and 30 seconds at each site. The procedure was well tolerated. She had conscious sedation throughout but was able to speak clearly. DISPOSITION: The patient is taken out into the discharge recovery area where she will be discharged home once discharge criteria have been met and she will follow up in the [facility] office in 2-4 weeks. I attest to the content of the Intraoperative Record and any orders documented therein. Any exception s are noted below.
== END | disposition home or self-care (01) ==
LOC: X.SURG 06:56
PROVIDERS: ATTEND Physical Medicine & Rehabilitation
DX: M46.1 Sacroiliitis, not elsewhere classified (principal); E66.9 Obesity, unspecified; F17.200 Nicotine dependence, unspecified, uncomplicated; Z98.890 Other specified postprocedural states; Z88.2 Allergy status to sulfonamides; Z91.040 Latex allergy status; Z90.89 Acquired absence of other organs; Z68.1 Body mass index [BMI] 19.9 or less, adult

== ENCOUNTER → 2017-09-21 | Outpatient (CLI) | payer OTHER ==
[~2017-09-21] MED LIST changes: -ATROPINE SULFATE 0.1 MG/ML 5ML SYR IV PRN; -BUPIVACAINE 0.25% 2.5MG/ML PF 10 ML VIAL ONE; -DEXAMETHASONE SOD INJ 4 MG/ML VIAL ONE; -FENTANYL CITRATE INJ 50 MCG/1 ML 2 ML VIAL IV PRN; -FENTANYL CITRATE INJ 50 MCG/1 ML 2 ML VIAL ONE; -LACTATED RINGER'S 1000ML 1,000 ML IV SCH; -LIDOCAINE HCL 1% 20 ML VIAL ONE; -LIDOCAINE HCL 2% 2 ML VIAL (20MG/ML) ONE; -MIDAZOLAM HCL 1 MG/ML 2ML VIAL ONE; -ONDANSETRON INJ 2 MG/ML 2 ML VIAL IV PRN; -ONDANSETRON INJ 2 MG/ML 2 ML VIAL ONE; -PROPOFOL IV EMULSION 10 MG/ML 20 ML VIAL IV ONE
--- NOTE | 2017-09-22 06:09 | PAP/PSG TECHNICIAN REPORT ---
[facility] Wool Tamper Polysomnogram Report Study name: None Report date: 09/22/2017 Study date: 09/21/2017 Referring Physician: LAM Farley Name: SAMMY CARR Interpreting Physician: Elisha Cunningham M.D. Date of : 1970 Wool Tamper: VALERY Moulton. Sex: Female Age: 47 StudyType: PSG Weight: 150 lbs Height: 47 years, Height 5' 10" Neck Circum:12.5 inches BMI: 21.52 Medications: Elavil 50mg, Wellbutrin 100mg, Flexeril 10mg, Bentyl 20mg, Ativan 1mg, Methadone 10mg, Miralax, Multi vitamin, ProAir HFA 108mcg/act, Klonopin 1mg Patient History Study started on room air with ETCO2 monitoring in room #6. 47 yr old female here tonight for a possible split study. She was diagnosed with mild BERT and hypoxemia in 2006 and then in 2017 she was diagnosed with nocturnal hypoxemia in the absence of BERT. She has a history of sleep walking and sleep eating. She has been told by her that she stops breathing in her sleep. [facility] Her ESS=3/24.Neck circ=12.5inches Parameters Monitored NPSG: E1-M2, E2-M1, Fp1-M2, Fp2-M1, F3-M2, F4-M2, F4-M1, C3-M2, C4-M2, C4-M1, O1-M2, O2-M2, O2-M1, T3-M2, T4-M1, P3-M2, P4-M1, CHIN1, CHIN2, HR, EKG, Legs, PFLOW, SNOR, FLOW, CFLOW, Tidal Volume, THOR, ABDO, SpO2, PLTH, CPRESS, ETCO2 Wave, ETCO2, pH Sleep Architecture Sleep Stages Time at Lights Off 11:04:10 PM STAGES Time (min.) TST (%) Time at Lights On 5:44:40 AM Wake 29.5 -- Total Recording Time (TRT) 401.00 min. N1 13.0 4 Total Sleep Period (TSP) 382.0 min. N2 243.0 65 Total Sleep Time (TST) 371.0min. N3 66.5 18 Awake Time 29.5 min. REM 48.5 13 Wake after Sleep Onset 11.0 min. Sleep Efficiency (SE) 93 % Sleep Onset Latency (MARI) 18.5 min. Number of Stage 1 Shifts None Awakenings 9 Stage Changes 64 Number of REM periods 6 REM 48.5 13 REM Latency 95.0 min. NREM 322.5 87 Body Position Analysis Supine Right Left Side Prone Vertical Total Sleep Time (min.) 368.0 31.0 0.0 31.00 0.0 0.0 Total Sleep Time (%) 92% 8% 0% 8 0% N/A% Total Sleep Time REM (min.) 48.5 0.0 0.0 None 0.0 0.0 Total Sleep Time NREM (min.) 291.5 31.0 0.0 None 0.0 0.0 Intermittent Wake (min.) 28.0 1.5 0.0 None 0.0 0.0 Total Sleep Period (%) 91% None None None None None Arousals Myoclonus (PLM) * Events Count Index Events Count Index Spontaneous 22 4 Events Awake (PLMW) 24 48.8 Respiratory 4 0.8 Events Asleep w/ Arousal (PLMA) 5 0.8 PLM 4 1 Events Asleep w/o Arousal (PLMS) 37 6.0 Snoring 6 1 Total Asleep 42 6.8 Total 36 6 Total 66 10 Respiratory Analysis * CA OA MA CH H RERA Total Count 0 4 0 0 9 0 13 Index 0.0 0.6 0.0 0 1.5 0 2.1 Mean Duration 0.0 11.2 0.0 0.00 24.8 0.0 20.6 Longest Duration 0.0 12.9 0.0 0.00 0.0 0.0 54.5 Respiratory Event Summary Total Supine ~Supine Right Left Prone REM NREM Apneas Count 4 4 0 0 N/A N/A 4 0 Index 0.6 1 0 0.0 N/A N/A 5 0 Hypopneas (4% Desat) Count 9 9 0 0 N/A N/A 1 8 Index 1.5 1.6 0 0.0 N/A N/A 1.2 1.5 Apneas & All Hypopneas Count 13 13 0 0 N/A N/A 5 8 Index 2.1 2 0 0 N/A N/A 6.2 1.5 Respiratory Events (Lift Supervisor+All Hyp+RERA) Count 13 13 0 0 N/A N/A 5 8 Index 2.1 2 0 0.0 N/A N/A 6.2 1.5 Respiratory Related Arousal Count 4 13 0 0 N/A N/A 0 5 Index 0.8 1 0 0 N/A N/A 0 1 Snoring Analysis Supine Right Left Prone REM NREM Total Snore duration 25.3 min Snores count 1,552 4 N/A N/A 63 1,493 1,556 Snore mean duration 1.0 Sec Snores index 274 8 N/A N/A 77.9 277.8 251.6 TST with snoring (%) 6.8% SpO2 Analysis Total REM NREM Awake <50% 0.0 min. 0.0 min. 0.0 min. 0.0 min. 51 - 60% 0.0 min. 0.0 min. 0.0 min. 0.0 min. 61 - 70% 0.0 min. 0.0 min. 0.0 min. 0.0 min. 71 - 80% 0.1 min. 0.0 min. 0.0 min. 0.1 min. 81 - 90% 224.6 min. 11.4 min. 209.5 min. 3.8 min. 91 - 100% 173.3 min. 37.1 min. 112.9 min. 23.3 min. Average 90 92 89 92 Minimum SpO2 80 84 81 80 Desaturation Event Index 2.2 4.9 1.5 6.1 # Desat. Events below 89% 10 3 7 0 Time(%) with Saturation below 89% 40.3 1.1 38.6 0.6 Time(min.) with Saturation below 89% 160.4 4.3 153.7 2.4 Heart Rate Analysis End Tidal CO2 Analysis Min (bpm) Max (bpm) Average (bpm) TSP (mins) % of TSP Awake 68 88 79 Above 55 mmHg 0.0 0.0 NREM 68 86 76 50-55 mmHg 0.0 0.0 REM 67 81 73 45-50 mmHg 0.4 0.1 Overall 67 86 75 40-45 mmHg 56.2 15.1 35-40 mmHg 98.6 26.6 30-35 mmHg 82.4 22.2 Average ETCO2 0.1 Supplemental O2 Values Minimum O2 level: None Value Start Time End Time Wool Tamper Comments Mrs. Carr slept in the right and supine positions. No cardiac arrhythmia noted. Some leg movements were noted but no arm movements. No sleep walking or sleep eating noted.. No bruxism noted. Snoring was noted and scored as a 3 on a scale of 1 through 5. (0=no snoring, 5=snoring loud enough to be heard through a closed door or down the [address] way) She did not use the restroom during the night. She stated that she slept better than usual. At 5:10 am one liter of oxygen was added. Her AHI was 2.3 for 336minutes and her oxygen saturation was below 89% for 158 minutes. The final report will be interpreted and signed by a sleep physician. The completed physician report will then be placed in the patient medical record. Therapy (cm H2O) 0 TIB (min.) 400.5 TST (min.) 371.0 Sleep Onset (min.) 18.5 REM Onset From Sleep (min.) 95.0 Sleep Efficiency % 93 Wakefulness (%) 7 Wakefulness (min.) 29.5 NREM 1 (%) 4 NREM 1 (min.) 13.0 NREM 2 (%) 65 NREM 2 (min.) 243.0 NREM 3 (%) 18 NREM 3 (min.) 66.5 REM (%) 13 REM (min.) 48.5 # Arousals 36 Arousal Index 6 # Snore 1,556 Snore Index 251.6 AHI 2.1 AHI Supine 2 AHI Non-Supine 0 NREM AHI 1.5 REM AHI 6.2 RDI 2.1 # Obstructive Apnea 4 # Central Apnea 0 # Mixed Apnea 0 # Hypopneas 9 RERAs 0 Total Respiratory Events 16 Time Below SpO2 89% (min.) 158.0 Mean NREM SpO2 (%) 89 Mean REM SpO2 (%) 92 Mean Sleep SpO2 (%) 90 Min NREM SpO2 (%) 81 Min REM SpO2 (%) 84 Position Supine (min.) 368.0 Position Non-supine (min.) 31.0 LM Index Sleep 6.8 LM Index NREM 6.7 LM Index REM 7.4 Mean Heart Rate (bpm) 75 Min Heart Rate (bpm) 67
--- NOTE | 2017-10-01 21:05 | Sleep Study ---
Sleep Study Report Date of Service: 10/01/17 Sleep Study Report [facility] Diagnostic Polysomnogram Interp Report Study name: None Report date: 10/01/2017 Study date: 09/21/2017 Referring Physician: LAM Farley Name: SAMMY NATHAN Interpreting Physician: Elisha Cunningham M.D. Date of : 1970 [address] Instructional Assistant: VALERY Moulton. Sex: Female Age: 47 StudyType: PSG Weight: 150 lbs Height: 47 years, Height 5' 10" Neck Circum: 12.5 in BMI: 21.52 DIAGNOSTIC POLYSOMNOGRAPHY REPORT This patient was referred by LAM Farley. SAMMY NATHAN, tested at 8:29:11 PM on 09/21/2017, is a 47 year old female, date of 1970 who is 5' 10" and 150 lbs, with a BMI of 21.52, which is normal. This patient has an Bernice Sleepiness Score of 3, which is normal. The neck circumference is 12.5 inches. Study scored by: Elisha Cunningham M.D. IMPRESSION: 1-Primary snoring. If sleep apnea is strongly suspected, a repeat PSG may be indicated given night to night variability in sleep apnea and the possibility of a false negative study. 2-Low oxygen desaturation was noted during the study, without hypercapnea, even in the absence of respiratory events. There may be another underlying cardiopulmonary disorder that explains these findings. Further clinical correlation is advised. 3-Abnormal sleep architecture likely due to first night effect. RECOMMENDATIONS: Supplemental oxygen 1 lpm at bedtime. Past medical history: Insomnia, Sleepwalking. Medications: Elavil , Wellbutrin, Flexeril, Bentyl, Ativan,Methadone, Miralax, Multi vitamin , ProAir HFA, Klonopin Sleep Study Summary Procedure: The study was attended continuously by a pharmacy technologist. The monitored parameters included: left (E1-M2) and right (E2-M1) EOG, frontal (F3- M2 & F4-M1), central (C3-M2 & C4-M1) and occipital (O1-M2 & O2-M1) EEG, mental and submental EMG, left and right anterior tibialis EMG, left and right extensor digitorum EMG, single ECG waveform, snoring, continuous airflow with thermistor and nasal pressure transducer, chest and abdominal effort, oxygen saturation, EtCO2, and body position via video monitoring. Hypopnea definition: The nasal pressure signal excursions (or those of the alternative hypopnea sensor) drop by 30 % of baseline. The duration of this drop occurs for a period lasting at least 10 seconds. There is a 4 % desaturation from pre-event baseline or the event is associated with an arousal. At least 90% of the event's duration must meet the amplitude reduction criteria for hypopnea. Sleep Data: This patient displayed normal latency to sleep onset of 18.5 min., with disrupted sleep architecture with sleep stage percentages of 3% N1, 64% N2, 17% N3, and 13% REM, with normal sleep efficiency of 93% and with Total Sleep Time of 371.0 minutes. Respiratory Data: 13 respiratory events were observed. The apnea-hypopnea index was 2.1 which is normal. The amounts of apneas/hypopneas are not evenly distributed throughout the study, with a non-REM RDI of 1.5 and a REM RDI of 6.2. Respiratory events were more frequent in the supine position. The longest respiratory event duration was 54.5 sec. Minimum NREM oxygen saturation was 81%; minimum REM oxygen saturation was 84%. Time spent below SaO2 of 90% was 40.3 min. The time spent with SaO2 of 80-89% was 158 min. Snoring was noted to be present. Limb Movement: 42 limb movements were observed for an index of 6.8. Arousal: 36 arousals were observed, with a total index of 6. There were 22 spontaneous arousals, 4 respiratory arousals (respiratory arousal index of 0.8) , and 4 limb movement arousals (limb movement arousal index of 1). Cardiac: The average heart rate during sleep was 76 beats per minute, with a range of 67 to 86. During wake, the heart rate ranged from 68 to 88 beats per minute. There were no arrhythmias noted. Kye-Brown breathing was absent. EEG: There were no epileptic form features reported. Behavioral Observation: The patient reported that their sleep for this study was longer in duration and of better quality than usual. The patient did not display unusual behaviors. Thank you for the courtesy of this referral. Dr Elisah Cuninngham Board Certified in Internal/ Sleep Medicine
== END | disposition home or self-care (01) ==
LOC: C.NEUR 21:00
PROVIDERS: ATTEND Nurse Practitioner Family
DX: F51.04 Psychophysiologic insomnia (principal); G89.29 Other chronic pain; G47.01 Insomnia due to medical condition; F51.3 Sleepwalking [somnambulism]; G47.8 Other sleep disorders; G47.34 Idiopathic sleep related nonobstructive alveolar hypoventilation

== ENCOUNTER 2017-12-11 09:03 | Emergency (ER) | payer OTHER ==
[~2017-12-11] VITALS: Ht 175.3 cm; Wt 67.0 kg
[~2017-12-11 09:03] MED LIST changes: -AMT50 PO; -BUPR-79 PO; +CLON1TAB4 PO; -CONJ.6255 PO; +CYCL10TA6 PO; -FLX10 PO; -METH10TA PO; -MULT-506 PO; +OXYC-57 PO; +POLY335019 PO; -SENNTAB23 PO
[2017-12-11 09:07] VITALS: TEMP 36.6; Ht 175.3 cm; Wt 67.0 kg
[2017-12-11] MEDS ORDERED: ONDANSETRON INJ 2 MG/ML 2 ML VIAL IV STA (09:33)
[2017-12-11] MEDS ORDERED: MoRPHine SULFATE 4 MG/ML 1 ML CARP\\VIAL IV STA (09:33)
--- NOTE | 2017-12-11 09:40 | EMERGENCY ROOM VISIT NOTE ---
History Report prepared by Amanda: Nirav Ramires Under the Supervision of: Dr. Narinder Serrano M.D. First contact with patient: 09:23 Chief Complaint: RECTAL BLEEDING Stated Complaint: STOMACH PAIN/BLEEDING History of Present Illness The patient is a 47 year old white female with a past medical history of asthma , back fracture, back surgery, hysterectomy, and bronchitis who presents to the Emergency Room with complaints of rectal bleeding that began at 0200 this morning, 7.5 hours ago. The patient states that she had been constipated since 1300 yesterday afternoon. She has been experiencing abdominal pain, that was worsened by trying to produce a bowel movement. She did produce stool at 000 0 this morning, before the rectal bleeding onset. The patient notes that she "filled the toilet twice" and estimates that she passed a "soda can amount" of blood. The patient's at bedside notes that the patient was standing in the garage and blood was "dripping from her rectum." The patient was in the department 14 days ago for a fractured back. 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 A total of ten systems were reviewed and were otherwise negative. Past Medical & Surgical Medical Problems: (1) Asthma (2) Bronchitis (3) Depression (4) Right lower lobe lung mass Surgical Problems: (1) History of back surgery (2) S/P hysterectomy Family History Cancer Diabetes mellitus FH: heart disease Social History Smoking Status: Current Every Day Smoker Marital Status: Occupation Status: disabled Current/Historical Medications Scheduled Clonazepam (Klonopin), 1 MG PO HS Cyclobenzaprine Hcl (Flexeril), 10 MG PO TID Polyethylene Glycol 3350 (Miralax), 17 GM PO QAM Tramadol Hcl (Ultram), 50 MG PO Q8H Scheduled PRN Albuterol Hfa (Ventolin Hfa), 2-4 PUFFS INH Q6H PRN for SOB/Wheezing Cyclobenzaprine Hcl (Flexeril), 10 MG PO TID PRN for Pain Hydrocodon/Acetaminophen 5MG/300MG (Vicodin (5MG/300MG)), 1 TAB PO Q6H PRN for Pain Lorazepam (Ativan), 1 MG PO QID PRN for RN Oxycodone/Acetaminophen 5MG/325MG (Percocet 5MG/325MG), 1 TAB PO Q4H PRN for Pain Allergies Coded Allergies: Sulfa Antibiotics (Verified Allergy, Intermediate, rash, 12/11/17) Prednisone (Verified Allergy, Mild, CHEST PAIN, 12/07/17) Adhesives (Verified Allergy, Unknown, "BREAK OUT", 12/07/17) Bacitracin (Unverified Allergy, Unknown, OINTMENT UNDER EYES-AREA SWELLING ,ITCHY AT SITE, 12/07/17) Gabapentin (Verified Allergy, Unknown, SWELLING, 12/07/17) Latex1 -Allergic Contact Dermititis (Verified Allergy, Unknown, RASH AND "BREAK OUT", 12/07/17) Levofloxacin (Verified Allergy, Unknown, RASH, 12/07/17) Physical Exam Vital Signs Date Time Temp Pulse Resp B/P (MAP) Pulse Ox O2 Delivery O2 Flow Rate FiO2 12/11/17 13:18 68 16 120/72 98 12/11/17 11:20 72 16 115/76 96 Room Air 12/11/17 10:01 79 12/11/17 09:07 36.6 93 16 109/60 96 Room Air Physical Exam GENERAL: Awake, alert, well-appearing, NAD, wearing glasses. HENT: Normocephalic, atraumatic. EYES: Normal conjunctiva. Sclera non-icteric. PERRL. No anisocoria. NECK: Supple. No nuchal rigidity. FROM. RESPIRATORY: CTAB, no rhonchi, wheezing, crackles CARDIAC: RRR, no MRG ABDOMEN: Soft, BS+, mild diffuse abd pain, worse in suprapubic region, no guarding, no rebound, not peritonitic, incisional scar in right lower quadrant. MSK: No chest wall TTP, no LE edema NEURO: GCS 15, CN 2-12 intact, moves all 4s on command SKIN: No rash or jaundice noted. RECTAL: 1 external non-bleeding hemorrhoid. No fissure, Hemoccult negative, no gross blood. Medical Decision & Procedures ER Provider Diagnostic Interpretation: Radiology results as stated below per my review and radiologist interpretation: ABDOMEN AND PELVIS CT WITH IV CONTRAST CT DOSE: 300.35 mGy.cm HISTORY: Acute generalized abdominal pain with rectal bleeding diffuse ab pain w/ associated rectal bleeding TECHNIQUE: Multiaxial CT images of the abdomen and pelvis were performed following the use of intravenous contrast. A dose lowering technique was utilized adhering to the principles of ALARA. COMPARISON STUDY: CT pelvis 12/07/2017, CT chest 02/16/2017. FINDINGS: Postoperative changes with pleural-parenchymal scarring involves the posterior basal segment right lower lobe. No pneumatosis or pneumoperitoneum. Imaged inferior cardiac chambers are unremarkable. Prior cholecystectomy with redemonstration of intrahepatic and extrahepatic delayed ductal dilation. The common bile duct measures up to 13 mm transversely. The degree of intrahepatic and extrahepatic biliary ductal dilation has progressed from comparison CT of the chest. No pancreatic ductal dilation. No focal hepatic mass lesions. Spleen, pancreas and adrenal glands are unremarkable. Kidneys, ureters and bladder are unremarkable. Prior hysterectomy. No adnexal mass lesions. Mild mixed plaque formation about the abdominal aorta. No aneurysm. IVC is unremarkable. Portal vein is patent. There are no pathologically enlarged lymph nodes identified. Mild likely physiologic gaseous distention about the proximal duodenum. No bowel obstruction. There is moderate circumferential wall thickening of the colon extending from the distal transverse colon through the descending and sigmoid portions. Mild pericolonic inflammatory stranding. No evidence of perforation or abscess. The appendix is not definitively seen and may be surgically absent. Fluid-filled terminal ileum. Fluid collection posterior to the left iliac bone redemonstrated, 6.3 x 1.5 x 8.7 cm. Bones appear to be intact. Prior laminectomy with posterior interbody teetee and screw fusion at L5-S1. Grade 1 anterolisthesis L5 on S1. IMPRESSION: 1. Circumferential wall thickening with mucosal hyperemia and associated inflammatory stranding involves the colon extending from the distal transverse segment through the sigmoid compatible with acute colitis, likely from infectious or inflammatory etiology. 2. No bowel obstruction. 3. Prior cholecystectomy with progressively worsened intrahepatic and extrahepatic biliary ductal dilation. This may be on a postsurgical basis, however correlation with LFTs recommended. 4. Subcutaneous fluid collection adjacent to the left gluteus portia may reflect a postoperative stroma. Correlate with clinical exam. Electronically signed by: Sim Posada M.D. 12/11/2017 12:14 PM Dictated Date/Time: 12/11/2017 12:00 PM KUB HISTORY: Generalized abdominal pain. COMPARISON: None. FINDINGS: The bowel gas pattern is unremarkable. There are no dilated loops of small bowel to suggest an obstruction. No renal calculi. No ureteral calculi. No pneumoperitoneum or pneumatosis. Prior cholecystectomy. L5-S1 posterior fusion. Linear scarring and suture material within the right lung base. IMPRESSION: No renal or ureteral stones. No evidence for bowel obstruction. Electronically signed by: Rodri Munoz M.D. 12/11/2017 10:48 AM Dictated Date/Time: 12/11/2017 10:44 AM Laboratory Results 12/11/17 09:45 Red Blood Count 4.19, Mean Corpuscular Volume 93.3, Mean Corpuscular Hemoglobin 30.8, Mean Corpuscular Hemoglobin Concent 33.0, Mean Platelet Volume 9.8, Neutrophils (%) (Auto) 81.3, Lymphocytes (%) (Auto) 10.9, Monocytes (%) (Auto) 3.9, Eosinophils (%) (Auto) 3.3, Basophils (%) (Auto) 0.3, Neutrophils # (Auto) 9.50, Lymphocytes # (Auto) 1.28, Monocytes # (Auto) 0.46, Eosinophils # (Auto) 0.39, Basophils # (Auto) 0.03 12/11/17 09:45 Test 12/11/17 09:45 12/11/17 09:59 12/11/17 10:00 White Blood Count 11.69 K/uL (4.8-10.8) Red Blood Count 4.19 M/uL (4.2-5.4) Hemoglobin 12.9 g/dL (12.0-16.0) Hematocrit 39.1 % (37-47) Mean Corpuscular Volume 93.3 fL (80-100) Mean Corpuscular Hemoglobin 30.8 pg (25-34) Mean Corpuscular Hemoglobin Concent 33.0 g/dl (32-36) Platelet Count 296 K/uL (130-400) Mean Platelet Volume 9.8 fL (7.4-10.4) Neutrophils (%) (Auto) 81.3 % Lymphocytes (%) (Auto) 10.9 % Monocytes (%) (Auto) 3.9 % Eosinophils (%) (Auto) 3.3 % Basophils (%) (Auto) 0.3 % Neutrophils # (Auto) 9.50 K/uL (1.4-6.5) Lymphocytes # (Auto) 1.28 K/uL (1.2-3.4) Monocytes # (Auto) 0.46 K/uL (0.11-0.59) Eosinophils # (Auto) 0.39 K/uL (0-0.5) Basophils # (Auto) 0.03 K/uL (0-0.2) RDW Standard Deviation 47.2 fL (36.4-46.3) RDW Coefficient of Variation 13.8 % (11.5-14.5) Immature Granulocyte % (Auto) 0.3 % Immature Granulocyte # (Auto) 0.03 K/uL (0.00-0.02) Prothrombin Time 10.3 SECONDS (9.0-12.0) Prothromb Time International Ratio 1.0 (0.9-1.1) Activated Partial Thromboplast Time 28.9 SECONDS (21.0-31.0) Partial Thromboplastin Ratio 1.1 Est Creatinine Clear Calc Drug Dose 79.9 ml/min Estimated GFR () 86.5 Estimated GFR (Non- 74.7 BUN/Creatinine Ratio 15.8 (10-20) Calcium Level 9.3 mg/dl (8.5-10.1) Total Bilirubin 0.6 mg/dl (0.2-1) Direct Bilirubin 0.1 mg/dl (0-0.2) Aspartate Amino Transf (AST/SGOT) 131 U/L (15-37) Alanine Aminotransferase (ALT/SGPT) 141 U/L (12-78) Alkaline Phosphatase 102 U/L (45-117) Total Protein 7.9 gm/dl (6.4-8.2) Albumin 4.1 gm/dl (3.4-5.0) Lipase 54 U/L (73-393) Bedside Hemoglobin 13.3 g/dl (12.0-16.0) Bedside Hematocrit 39 % (37-47) Bedside Sodium 141 mEq/L (135-144) Bedside Potassium 4.0 mEq/L (3.3-5.0) Bedside Chloride 100 mEq/L (101-112) Bedside Total CO2 27 mEq/l (24-31) Anion Gap 18.0 mmol/L (16-25) Bedside Blood Urea Nitrogen 15 mg/dl (7-18) Bedside Creatinine 0.8 mg/dl (0.6-1.3) Bedside Glucose (other) 103 mg/dl (70-99) Bedside Ionized Calcium (Dale) 1.16 mmol/l (1.12-1.32) Urine Color YELLOW Urine Appearance CLEAR (CLEAR) Urine pH 7.0 (4.5-7.5) Urine Specific [place] 1.004 (1.000-1.030) Urine Protein NEG (NEG) Urine Glucose (UA) NEG (NEG) Urine Ketones NEG (NEG) Urine Occult Blood TRACE (NEG) Urine Nitrite NEG (NEG) Urine Bilirubin NEG (NEG) Urine Urobilinogen NEG (NEG) Urine Leukocyte Esterase NEG (NEG) Urine WBC (Auto) 0 /hpf (0-5) Urine RBC (Auto) 0-4 /hpf (0-4) Urine Hyaline Casts (Auto) 0 /lpf (0-5) Urine Epithelial Cells (Auto) 5-10 /lpf (0-5) Urine Bacteria (Auto) NEG (NEG) Urine Test NEG (NEG) Laboratory results reviewed by me Medications Administered Medications (Trade) Dose Ordered Sig/Diane Route Start Time Stop Time Status Last Admin Dose Admin Ondansetron HCl (Zofran Inj) 4 mg NOW STAT IV 12/11/17 09:33 12/11/17 09:36 DC 12/11/17 10:01 4 MG Morphine Sulfate (MoRPHine SULFATE INJ) 4 mg NOW STAT IV 12/11/17 09:33 12/11/17 09:36 DC 12/11/17 10:01 4 MG Ketorolac Tromethamine (Toradol Inj) 30 mg NOW STAT IV 12/11/17 11:36 12/11/17 11:37 DC 12/11/17 11:36 30 MG Tramadol HCl (Ultram Tab) 50 mg NOW STAT PO 12/11/17 12:54 12/11/17 12:55 DC 12/11/17 12:54 50 MG ECG Per My Interpretation Indication: other (Rectal Bleed) Rate (beats per minute): 76 Rhythm: normal sinus Findings: T-wave inversion (AvL), other (RAD, normal axis, normal intervals) ED Course 09: The patient was evaluated in room B12B. A complete history and physical exam was performed. 1132: I performed a rectal exam at this time see physical exam. 1254: I reevaluated the patient. Discussed results and discharge instructions: She verbalized understanding and agreement. The patient is ready for discharge. Medical Decision The patient is a 47 year old white female with a past medical history of asthma , back fracture, back surgery, hysterectomy, and bronchitis who presents to the Emergency Room with complaints of rectal bleeding that began at 0200 this morning, 7.5 hours ago. Nursing notes reviewed. Ancillary studies and prior records reviewed. Differential diagnosis: Etiologies such as diverticulosis, AVM, coagulopathy, colitis, inflammatory bowel disease, malignancy, Hannah-Cruz tear, esophagitis, peptic ulcer disease , variceal bleed, gastritis, epistaxis, fissure, hemorrhoids, as well as others were entertained. Patient was seen and evaluated the bedside. Patient was complaining of rectal bleeding. Patient was complaining of rectal pain with straining and then noticed blood with bowel movements beginning yesterday. Patient has complained of diffuse abdominal discomfort. Patient does not take any blood thinning medications. The patient does have mild diffuse abdominal discomfort on exam. Patient status post cholecystectomy and appendectomy. She denies any blood in the urine. Patient did have blood work completed along with a CT abdomen pelvis and KUB. Patient's KUB was unremarkable. The patient's blood work showed normal H&H platelet count and coagulation studies. Patient CT did show concern for possible colitis. I discussed with the patient and told her to consider a more bland and clear liquid diet and then to slowly advance as tolerated. Patient does have mild elevation in LFTs and there was some intra-and extrahepatic dilatation however the patient does not have any diffuse upper right quadrant pain. Patient is tolerating p.o. she does not have any elevations in her bilirubin and is status post cholecystectomy. I did discuss with the patient that she would follow-up with her PCP for repeat testing. patient was told to follow-up with her PCP if she has persistent symptoms. The patient was feeling improved and was able tolerate p.o. Patient was given strict follow-up, discharge, and return precautions. All questions were answered. Patient was deemed suitable for outpatient follow-up at this time. Patient agreed with the plan of care and was safely discharged home. Medication Reconcilliation Current Medication List: was personally reviewed by me Blood Pressure Screening Patient's blood pressure: Normal blood pressure Impression Primary Impression: Colitis Additional Impressions: Abdominal pain Transaminitis Scribe Attestation The scribe's documentation has been prepared under my direction and personally reviewed by me in its entirety. I confirm that the note above accurately reflects all work, treatment, procedures, and medical decision making performed by me. Departure Information Dispostion Home / Self-Care Prescriptions Tramadol Hcl (ULTRAM) 50 Mg Tab 50 MG PO Q8H, #12 TAB PRN PAIN Prov: Narinder Serrano M.D. 12/11/17 Referrals No Doctor, Assigned (PCP) Patient Instructions Abdominal Pain, Diet Clear Liquid Dc, My [facility] Additional Instructions Please return to the emergency department if you have worsening or recurrent symptoms not amenable to at-home treatment. Please call for a follow-up appointment with her primary care physician. Please take your medications as prescribed. If you have other concerns and/or complaints please feel free to also call your primary care physician's office or return the ED for further evaluation, management, and treatment. You may take 600 mg Ibuprofen every 6 hours as needed for pain/fever with food unless told by your physician not to take NSAIDs. You may take tylenol 650 mg every 6 hours as needed for pain/fever unless told by your physician to not take it or have liver problems. You may take motrin and tylenol separately or at the same time. Take your medications as prescribed. You have been examined and treated today on an emergency basis only. This is not a substitute for, or an effort to provide, complete comprehensive medical care. It is impossible to recognize and treat all injuries or illnesses in a single emergency department visit. It is therefore important that you follow up closely with [facility], your PCP, and/or your specialist(s). Call as soon as possible for an appointment. Thank you for your time and consideration. I look forward to speaking with you again soon. Please don't hesitate to call us if you have any questions. Problem Qualifiers Additional Impressions: Abdominal pain Abdominal location: generalized Qualified Codes: R10.84 - Generalized abdominal pain
[2017-12-11] MEDS ORDERED: OPTIRAY 320 IV PRN (09:45)
[2017-12-11 10:08] LABS: BASO % 0.3 %; BASO ABS # 0.03 K/uL (0-0.2); EOS % 3.3 %; EOS ABS # 0.39 K/uL (0-0.5); HEMATOCRIT 39.1 % (37-47); HEMOGLOBIN 12.9 g/dL (12.0-16.0); IG# 0.03 K/uL (0.00-0.02); LYMPH % 10.9 %; LYMPH ABS # 1.28 K/uL (1.2-3.4); MEAN CELL VOLUME 93.3 fL (80-100); MEAN CORPUSCULAR HEMOGLOBIN 30.8 pg (25-34); MEAN PLATELET VOLUME 9.8 fL (7.4-10.4); MONO % 3.9 %; MONO ABS # 0.46 K/uL (0.11-0.59); NEUT % 81.3 %; PLATELET COUNT 296 K/uL (130-400); RED CELL DISTRIBUTION WIDTH CV 13.8 % (11.5-14.5); RED CELL DISTRIBUTION WIDTH SD 47.2 fL (36.4-46.3); WHITE BLOOD COUNT 11.69 K/uL (4.8-10.8)
[2017-12-11 10:22] LABS: PTT PATIENT 28.9 SECONDS (21.0-31.0)
[2017-12-11 10:32] LABS: ALBUMIN 4.1 gm/dl (3.4-5.0); CALCIUM 9.3 mg/dl (8.5-10.1); CREATININE 0.92 mg/dl (0.60-1.20); POTASSIUM 3.9 mmol/L (3.5-5.1); TOTAL PROTEIN 7.9 gm/dl (6.4-8.2)
--- NOTE | 2017-12-11 10:50 | DIAGNOSTIC IMAGING REPORT ---
KUB HISTORY: Generalized abdominal pain. COMPARISON: None. FINDINGS: The bowel gas pattern is unremarkable. There are no dilated loops of small bowel to suggest an obstruction. No renal calculi. No ureteral calculi. No pneumoperitoneum or pneumatosis. Prior cholecystectomy. L5-S1 posterior fusion. Linear scarring and suture material within the right lung base. IMPRESSION: No renal or ureteral stones. No evidence for bowel obstruction. Electronically signed by: Rodri Munoz M.D. 12/11/2017 10:48 AM Dictated Date/Time: 12/11/2017 10:44 AM
[2017-12-11 11:03] LABS: ISTAT CREATININE 0.8 mg/dl (0.6-1.3); ISTAT IONIZED CALCIUM 1.16 mmol/l (1.12-1.32)
[2017-12-11] MEDS ORDERED: KETOROLAC TROMETHAMINE 30 MG/ML VIAL IV STA (11:36)
--- NOTE | 2017-12-11 12:15 | DIAGNOSTIC IMAGING REPORT ---
ABDOMEN AND PELVIS CT WITH IV CONTRAST CT DOSE: 300.35 mGy.cm HISTORY: Acute generalized abdominal pain with rectal bleeding diffuse ab pain w/ associated rectal bleeding TECHNIQUE: Multiaxial CT images of the abdomen and pelvis were performed following the use of intravenous contrast. A dose lowering technique was utilized adhering to the principles of ALARA. COMPARISON STUDY: CT pelvis 12/07/2017, CT chest 02/16/2017. FINDINGS: Postoperative changes with pleural-parenchymal scarring involves the posterior basal segment right lower lobe. No pneumatosis or pneumoperitoneum. Imaged inferior cardiac chambers are unremarkable. Prior cholecystectomy with redemonstration of intrahepatic and extrahepatic delayed ductal dilation. The common bile duct measures up to 13 mm transversely. The degree of intrahepatic and extrahepatic biliary ductal dilation has progressed from comparison CT of the chest. No pancreatic ductal dilation. No focal hepatic mass lesions. Spleen, pancreas and adrenal glands are unremarkable. Kidneys, ureters and bladder are unremarkable. Prior hysterectomy. No adnexal mass lesions. Mild mixed plaque formation about the abdominal aorta. No aneurysm. IVC is unremarkable. Portal vein is patent. There are no pathologically enlarged lymph nodes identified. Mild likely physiologic gaseous distention about the proximal duodenum. No bowel obstruction. There is moderate circumferential wall thickening of the colon extending from the distal transverse colon through the descending and sigmoid portions. Mild pericolonic inflammatory stranding. No evidence of perforation or abscess. The appendix is not definitively seen and may be surgically absent. Fluid-filled terminal ileum. Fluid collection posterior to the left iliac bone redemonstrated, 6.3 x 1.5 x 8.7 cm. Bones appear to be intact. Prior laminectomy with posterior interbody teetee and screw fusion at L5-S1. Grade 1 anterolisthesis L5 on S1. IMPRESSION: 1. Circumferential wall thickening with mucosal hyperemia and associated inflammatory stranding involves the colon extending from the distal transverse segment through the sigmoid compatible with acute colitis, likely from infectious or inflammatory etiology. 2. No bowel obstruction. 3. Prior cholecystectomy with progressively worsened intrahepatic and extrahepatic biliary ductal dilation. This may be on a postsurgical basis, however correlation with LFTs recommended. 4. Subcutaneous fluid collection adjacent to the left gluteus portia may reflect a postoperative stroma. Correlate with clinical exam. Electronically signed by: Sim Posada M.D. 12/11/2017 12:14 PM Dictated Date/Time: 12/11/2017 12:00 PM
[2017-12-11] MEDS ORDERED: TRAM-453 PO (12:53)
[2017-12-11] MEDS ORDERED: TRAMADOL HCL 50 MG TAB PO STA (12:54)
[2017-12-11 13:18] VITALS: BP 120/72; PULSE 68; O2SAT 98
== END 2017-12-11 13:18 | disposition home or self-care (01) ==
LOC: C.EDB 09:04
DX: K52.9 Noninfective gastroenteritis and colitis, unspecified (principal); R10.84 Generalized abdominal pain; R74.0 Nonspecific elevation of levels of transaminase and lactic acid dehydrogenase [LDH]; K62.5 Hemorrhage of anus and rectum; F32.9 Major depressive disorder, single episode, unspecified; J45.909 Unspecified asthma, uncomplicated; Z79.899 Other long term (current) drug therapy; Z88.2 Allergy status to sulfonamides; Z88.8 Allergy status to other drugs, medicaments and biological substances; Z88.1 Allergy status to other antibiotic agents; Z91.040 Latex allergy status; F17.200 Nicotine dependence, unspecified, uncomplicated